=== PATIENT | female | born 1945 | race Caucasian/White ===

== ENCOUNTER 2019-07-02 07:07 | Emergency (ER) | payer MEDICARE, OTHER ==
--- NOTE | 2019-07-02 08:28 | ER Document Report ---
Entered by FRANCES HERNANDEZ SCRIBE 07/02/19 0742 Acting as scribe for:DAPHNE BONNER MD ED Fall - General Chief Complaint: Fall Stated Complaint: FALL/HEAD INJURY,HAND PAIN Time Seen by Provider: 07/02/19 07:27 Mode of Arrival: Ambulatory Information source: Patient Notes: Patient is a 73-year-old female visiting here from [place] who presents to the emergency department today with complaints of a fall that occurred just prior to arrival. Patient states that she dropped her hotel jackson, bent over to pick it up and fell forward. Patient states she did not get dizzy, she just lost her balance. Patient has a hematoma to the left forehead, left knee pain, and left hand pain. Patient states in November 2018 she slipped on ice, falling face first hitting her head on concrete causing a head bleed. Patient does not know details regarding the bleed. Patient states she was observed for day without intervention and discharged home without any complications. Patient denies any loss of consciousness, usage of blood thinning medications, or neck pain. TRAVEL OUTSIDE OF THE [place] IN LAST 30 DAYS: No - Related data Allergies/Adverse Reactions: Penicillins Allergy (Verified 07/02/19 07:48) Sulfa (Sulfonamide Antibiotics) Allergy (Verified 07/02/19 07:48) erythromycin base Adverse Reaction (Verified 07/02/19 07:48) spironolactone Adverse Reaction (Verified 07/02/19 07:48) Past Medical History - General Information source: Patient, Relative - Social History Smoking Status: Never Smoker Cigarette use (# per day): No Chew tobacco use (# tins/day): No Frequency of alcohol use: Rare Drug Abuse: None Lives with: Spouse/Significant other Family History: Reviewed & Not Pertinent Patient has suicidal ideation: No Patient has homicidal ideation: No - Past Medical History Cardiac Medical History: Reports: Hx Hypercholesterolemia, Hx Hypertension Neurological Medical History: Reports: Other - Hx of head bleed from fall, no intervention GI Medical History: Reports: Hx Gastroesophageal Reflux Disease Psychiatric Medical History: Reports: Hx Anxiety, Hx Depression Review of Systems - Review of Systems Constitutional: No symptoms reported EENT: No symptoms reported Cardiovascular: No symptoms reported Respiratory: No symptoms reported Gastrointestinal: No symptoms reported Genitourinary: No symptoms reported Female Genitourinary: No symptoms reported Musculoskeletal: See HPI, Other - Left knee pain, Left hand pain, Forehead hematoma Skin: No symptoms reported Hematologic/Lymphatic: No symptoms reported Neurological/Psychological: denies: Lost consciousness -: Yes All other systems reviewed and negative Physical Exam - Vital signs Vitals: Temp Pulse Resp BP Pulse Ox 97.5 F 63 18 123/50 L 100 07/02/19 07:17 07/02/19 07:17 07/02/19 07:17 07/02/19 07:17 07/02/19 07:17 - Notes Notes: Physical Exam: General: Alert, appears well. HEENT: Normocephalic. Left forehead contusion/abrasion with associated swelling just superior to left eyebrow, no eyeball injury. PERRL. Extraocular movements intact. Oropharynx clear. Neck: Supple. Non-tender. Respiratory: No respiratory distress. Clear and equal breath sounds bilaterally. Cardiovascular: Regular rate and rhythm. Abdominal: Normal Inspection. Non-tender. No distension. Normal Bowel Sounds. Back: No gross abnormalities. Extremities: Moves all four extremities. Upper extremities: Tenderness with palpation over the left fourth metacarpal head with associated contusion, ecchymosis, and swelling dorsally. Lower extremities: Contusion of the left knee with associated tenderness to palpation over the anterior medial knee with overlying superficial minor abrasion. Neurological: Normal cognition. AAOx4. Normal speech. Psychological: Normal affect. Normal Mood. Skin: Warm. Dry. Normal color. Course - Re-evaluation Re-evalutation: 07/02/19 09:30 Patient reports that they are leaving this area today, will be driving to [place] and from there to [place]. They will eventually be returning back to their home in [place]. 07/02/19 10:06 The knee immobilizer was placed on the left knee by the PCT. It fits well, provides good stability and support and allows patient to stand with less discomfort. A Velcro cock-up splint was placed on the left wrist and hand by the PCT. It fits well and provides good support with limitation of movement to protect the contused and fractured areas of the hand. - Vital Signs Vital signs: Temp Pulse Resp BP Pulse Ox 97.5 F 63 18 123/50 L 100 07/02/19 07:17 07/02/19 07:17 07/02/19 07:17 07/02/19 07:17 07/02/19 07:17 - Diagnostic Test Radiology reviewed: Image reviewed, Reports reviewed - CT scan of the head does not show any intracranial injury, there is soft tissue swelling hematoma to the left lateral forehead. X-ray left hand shows a fracture involving the radial base of the fifth metacarpal. X-ray of the left knee shows prosthesis in good position with no acute changes. Discharge - Discharge Clinical Impression: Displaced fracture of base of fifth metacarpal bone, right hand, initial encounter for closed fracture Fall Qualifiers: Encounter type: initial encounter Qualified Code(s): W19.XXXA - Unspecified fall, initial encounter Contusion of left knee Qualifiers: Encounter type: initial encounter Qualified Code(s): S80.02XA - Contusion of left knee, initial encounter Condition: Stable Disposition: HOME, SELF-CARE Additional Instructions: Contusion Your injuries have resulted in contusions -- a crushing of the deep tissues. No injury to important structures was detected during the physician's exam. Contusions vary in the amount of pain they cause, and in the length of time required for healing. Typically, the area will become bruised, and will remain painful to touch for two or three weeks. However, most patients are back to working and playing within a few days. After the initial period of rest and cold-packs, your symptoms (together with the doctor's recommendations) will determine how rapidly you can get back to full activity. Usually this means "do what feels okay, but don't do things that hurt." If re-examination was recommended, it's important to follow up as instructed. Call the doctor or return any time if pain increases, if swelling becomes severe, if you develop numbness or weakness in an injured extremity, or if any other alarming symptoms occur. Fractured Metacarpal You have broken a metacarpal bone in the hand. The fracture is usually caused by hitting the hand against a hard surface, but can also be caused by jamming a finger. At first the injury should be rested, elevated, and ice packed. The usual treatment is splinting for four to six weeks. For some patients, a cast is preferable. The physician will advise you. Call the doctor or come back if swelling or pain become severe, if numbness develops, or if you suspect you may have disturbed the fracture. Use the Velcro cock-up splint to protect your left hand injury. Use the knee immobilizer to facilitate necessary walking. Use ice packs on your forehead, hand and knee to help reduce swelling. Take Tylenol for pain as needed Limit activities much as possible. Follow-up with a local orthopedic doctor this week for recheck. RETURN TO THE EMERGENCY ROOM IF ANY NEW OR WORSENING SYMPTOMS. Scribe Attestation: 07/02/19 08:28 I personally performed the services described in the documentation, reviewed and edited the documentation which was dictated to the scribe in my presence, and it accurately records my words and actions. I personally performed the services described in the documentation, reviewed and edited the documentation which was dictated to the scribe in my presence, and it accurately records my words and actions.
--- NOTE | 2019-07-02 08:48 | RADIOLOGY REPORT (SQ) ---
EXAM DESCRIPTION: CT HEAD WITHOUT COMPLETED DATE/TIME: 07/02/2019 8:06 am REASON FOR STUDY: fall,L forehead contusion,traumatic bleed 12-01-18 COMPARISON: None. TECHNIQUE: Axial images acquired through the brain without intravenous contrast. Images reviewed wi th bone, brain and subdural windows. Additional sagittal and coronal reconstructions were generated. Images stored on PACS. All CT scanners at this facility use dose modulation, iterative reconstruction, and/or weight based d osing when appropriate to reduce radiation dose to as low as reasonably achievable (ALARA). [facility]: Dose Right [facility]: CareDose [facility]: Dose Right [facility]: Teradose 4D [facility]: Smart [employer] RADIATION DOSE: CT Rad equipment meets quality standard of care and radiation dose reduction techniq ues were employed. CTDIvol: 53.2 mGy. DLP: 991 mGy-cm. mGy. LIMITATIONS: None. FINDINGS: VENTRICLES: Normal size and contour. CEREBRUM: No masses. No hemorrhage. No midline shift. No evidence for acute infarction. Normal gra y/white matter differentiation. No areas of low density in the white matter. CEREBELLUM: No masses. No hemorrhage. No alteration of density. No evidence for acute infarction. EXTRAAXIAL SPACES: No fluid collections. No masses. ORBITS AND GLOBE: No intra- or extraconal masses. Normal contour of globe without masses. CALVARIUM: No fracture. PARANASAL SINUSES: No fluid or mucosal thickening. SOFT TISSUES: Soft tissue hematoma in the region of the left forehead. OTHER: No other significant finding. IMPRESSION: NORMAL BRAIN CT WITHOUT CONTRAST. SOFT TISSUE HEMATOMA IN THE REGION OF THE LEFT FOREHEAD. NO FRACTURE. EVIDENCE OF ACUTE STROKE: NO. COMMENT: Quality ID # [id number]: Final reports with documentation of one or more dose reduction techniques (e.g., Automated exposure control, adjustment of the mA and/or kV according to patient size, use of iterative reconstruction technique) TECHNICAL DOCUMENTATION: JOB ID: [id number] [facility]- All Rights Reserved Reading location - IP/workstation name: [email or web address]
--- NOTE | 2019-07-02 09:03 | RADIOLOGY REPORT (SQ) ---
EXAM DESCRIPTION: HAND LEFT 3 VIEWS COMPLETED DATE/TIME: 07/02/2019 7:58 am REASON FOR STUDY: fall, 4th [facility] head injury COMPARISON: None. EXAM PARAMETERS: NUMBER OF VIEWS: Three views. TECHNIQUE: AP, lateral and oblique radiographic images acquired of the left hand. LIMITATIONS: None. FINDINGS: MINERALIZATION: Normal. BONES: Fracture at the base of the 5th metacarpal. No worrisome bone lesions. JOINTS: No effusions. SOFT TISSUES: No soft tissue swelling. No foreign body. OTHER: No other significant finding. IMPRESSION: FRACTURE AT THE BASE OF THE 5TH METACARPAL. TECHNICAL DOCUMENTATION: JOB ID: [id number] [employer]- All Rights Reserved Reading location - IP/workstation name: [email or web address]
--- NOTE | 2019-07-02 09:04 | RADIOLOGY REPORT (SQ) ---
EXAM DESCRIPTION: KNEE LEFT 4 VIEW COMPLETED DATE/TIME: 07/02/2019 7:58 am REASON FOR STUDY: fall, hit knee, total knee replacement COMPARISON: None. NUMBER OF VIEWS: Four views. TECHNIQUE: AP, lateral, and both oblique radiographic images acquired of the left knee. LIMITATIONS: None. FINDINGS: MINERALIZATION: Normal. BONES: No acute fracture or dislocation. Intact prosthesis. No worrisome bone lesions. JOINT: No effusion. SOFT TISSUES: No soft tissue swelling. No radio-opaque foreign body. OTHER: No other significant finding. IMPRESSION: INTACT PROSTHESIS. NO RADIOGRAPHIC EVIDENCE OF ACUTE INJURY. TECHNICAL DOCUMENTATION: JOB ID: [id number] [employer]- All Rights Reserved Reading location - IP/workstation name: [email or web address]
[2019-07-02 10:12] VITALS: BP 120/57
== END 2019-07-02 10:06 | disposition home or self-care (01) ==
LOC: ER 07:07
DX: S62.316A Displaced fracture of base of fifth metacarpal bone, right hand, initial encounter for closed fracture (principal); S80.02XA Contusion of left knee, initial encounter; W18.30XA Fall on same level, unspecified, initial encounter; I10 Essential (primary) hypertension; E78.00 Pure hypercholesterolemia, unspecified; Z88.0 Allergy status to penicillin; Z88.2 Allergy status to sulfonamides; Z88.3 Allergy status to other anti-infective agents
CPT/HCPCS: 99284; 73130; 73564; 70450; L1830; L3908 ×2